=== PATIENT | female | born 1960 | race African-American/Black ===

== ENCOUNTER 2017-03-12 21:53 | Emergency (ER) | payer OTHER ==
[2017-03-12 22:03] VITALS: TEMP 98.7; BMI 27.3
[2017-03-12] MEDS ORDERED: ALBUTEROL SO4 2.5/IPRATROPIUM 0.5 INH SOL 3 ML VIAL.NEB. NEB ONE ×2 (22:35→22:42)
--- NOTE | 2017-03-12 22:36 | PDOC ---
History of Present Illness - General Chief Complaint: Shortness of Breath Stated Complaint: SOB Time Seen by Provider: 03/12/17 22:05 - History of Present Illness Initial Comments: 03/12/17 22:36 CHIEF COMPLAINT: sob HISTORY OF PRESENT ILLNESS: 56 yo F with no PMH presents to ED with cough and SOB. Patient reports that she has had a worsening cold over the past 3 weeks. She reports having a productive cough and chills. She saw her PCP Dr. Wyatt and was given an albuterol inhaler but it has not helped her today and she feels as if she can't breathe. No recent travel or sick contacts. PAST MEDICAL HISTORY: Denies past medical history FAMILY HISTORY: Denies SOCIAL HISTORY: Denies tobacco, alcohol, illicit drug use. SURGICAL HISTORY: Denies ALLERGIES: No known drug allergies REVIEW OF SYSTEMS General/Constitutional: Denies fever or chills. Denies weakness. HEENT: Denies change in vision. Denies ear pain or discharge. Denies sore throat. Cardiovascular: Denies chest pain. Respiratory: SOB, cough. Dnies hemoptysis. Gastrointestinal: Denies nausea, vomiting, diarrhea or constipation. Denies rectal bleeding. Genitourinary: Denies dysuria, frequency, or change in urination. Musculoskeletal: Denies joint or muscle swelling or pain. Denies neck or back pain. Skin and breasts: Denies rash or easy bruising. Neurologic: Denies headache, vertigo, loss of consciousness, or loss of sensation. PHYSICAL EXAM General Appearance: Well-appearing, appropriately dressed. No apparent distress. HEENT: EOMI, PERRLA, normal ENT inspection, normal voice, TMs normal, pharynx normal. No conjunctival pallor. No photophobia, scleral icterus. Neck: Supple. Trachea midline. No tenderness, rigidity, carotid bruit, stridor , lymphadenopathy, or thyromegaly. Respiratory/Chest: Scattered wheezing b/l. No chest tenderness, respiratory distress, accessory muscle use. No crackles, rales, rhonchi, stridor, dullness Cardiovascular: RRR. S1, S2. Musculoskeletal/Extremities: Normal inspection. FROM of all extremities, normal capillary refill. Pelvis Stable. No CVA tenderness. No tenderness to extremities, pedal edema, swelling, erythema or deformity. Integumentary: Appropriate color, dry, warm. No cyanosis, erythema, jaundice or rash Neurologic: superintendent transmission II-XII intact. Fully oriented, alert. Appropriate mood/affect. Motor strength 5/5. No appreciable EOM palsy, facial droop or sensory deficit. 03/13/17 00:56 03/13/17 00:58 Past History - Past Medical History Allergies/Adverse Reactions: Allergies Allergy/AdvReac Type Severity Reaction Status Date / Time No Known Allergies Allergy Verified 03/12/17 21:59 Home Medications: Ambulatory Orders Codeine/Promethazine HCl [Phenergan w/ Codeine Syrup] 5 ml PO TID #120 ml Albuterol Sulfate Inhaler - [Ventolin Hfa Inhaler -] 1 - 2 inh PO QID 03/12/17 Azithromycin [Zithromax 250mg Tablets -] 250 mg PO ASDIR #5 tab 03/13/17 Other medical history: seasonal bronchitis - Psycho/Social/Smoking Cessation Hx Suicidal Ideation: No Smoking History: Current every day smoker Number of Cigarettes Smoked Daily: 20 Information on smoking cessation initiated: No *Physical Exam - Vital Signs Last Vital Signs Temp Pulse Resp BP Pulse Ox 98.7 F 116 H 24 165/92 96 03/12/17 22:00 03/12/17 22:00 03/12/17 22:00 03/12/17 22:00 03/12/17 22:00 ED Treatment Course - LABORATORY CBC & Chemistry Diagram: 03/12/17 22:13 03/12/17 22:13 - RADIOLOGY Radiology Studies Ordered: Category Date Time Status CHEST PA & LAT [RAD] Stat Radiology 03/12/17 22:35 Ordered Medical Decision Making - Medical Decision Making 03/13/17 00:58 56 yo F with no PMH presents to ED with cough and SOB. -CBC, CMP, lactic acid -CXR CXR wet read negative for pneumonia. Clinical presentation consistent with asthma-like bronchitis. Azithromycin rx sent to pharm. ADvised patient to take medications as prescribed and f/u with PCP Edmundo this week. Advised patient of signs and symptoms for return to ER; patient verbalized understanding and agrees to plan. *DC/Admit/Observation/Transfer Diagnosis at time of Disposition: Bronchitis - Discharge Dispostion Admit: No - Prescriptions Prescriptions: Azithromycin [Zithromax 250mg Tablets -] 250 mg PO ASDIR #5 tab - Referrals Referrals: Thomas Wyatt MD [Staff Physician] - - Patient Instructions Printed Discharge Instructions: DI for Acute Bronchitis Additional Instructions: Please take medication as prescribed and follow up with Dr. Wyatt this week. If you experience any fever, chills, nausea, vomiting, diarrhea, chest pain, worsening shortness of breath, or any new or worsening symptoms, please return to the ER.
[2017-03-12 23:21] LABS: BASOPHIL 0.8 % (0-2.0); EOSINOPHIL 2.5 % (0-4.5); MCH 30.3 pg (25.7-33.7); MCHC 33.2 g/dl (32.0-36.0); MEAN CELL VOLUME 91.2 fl (80-96); MEAN PLT VOLUME 7.5 fl (7.5-11.1); NEUTROPHILS 65.1 % (42.8-82.8); PLATELET COUNT 299 K/MM3 (134-434); RDW 14.8 % (11.6-15.6)
[2017-03-13 00:38] LABS: ALBUMIN 3.9 g/dl (3.4-5.0); BILIRUBIN,TOTAL 0.4 mg/dL (0.2-1.0); CALCIUM 9.3 mg/dL (8.5-10.1); COCKROFT - GAULT 79.033
[2017-03-13 00:39] LABS: TOT PROT 7.3 g/dl (6.4-8.2)
[2017-03-13 01:06] VITALS: BP 138/74; PULSE 95
--- NOTE | 2017-03-14 10:41 | EKG ---
Test Reason : Blood Pressure : / mmHG Vent. Rate : 093 BPM Atrial Rate : 093 BPM P-R Int : 154 ms QRS Dur : 076 ms QT Int : 364 ms P-R-T Axes : 077 068 065 degrees QTc Int : 452 ms NORMAL SINUS RHYTHM NORMAL ECG NO PREVIOUS ECGS AVAILABLE Confirmed by TIGRE ROSA MD ([id number]) on 03/14/2017 10:41:07 AM Referred By: Confirmed By:TIGRE ROSA MD
== END 2017-03-13 01:06 | disposition home or self-care (01) ==
LOC: JER 21:53
PROC: 3E0F7GC Introduction of Other Therapeutic Substance into Respiratory Tract, Via Natural or Artificial Opening (ICD-10-PCS; principal; 2017-03-12)
DX: J40 Bronchitis, not specified as acute or chronic (principal); F17.210 Nicotine dependence, cigarettes, uncomplicated
CPT/HCPCS: 36415; 71020-TC; 80053; 83605; 85025; 87040; 93005; 93010; 99282-25

== ENCOUNTER 2022-07-11 12:31 | Emergency (ER) | payer OTHER ==
[2022-07-11 12:44] VITALS: PULSE 78; TEMP 98.8; BMI 23.7
[2022-07-11] MEDS ORDERED: SODIUM CHLORIDE 0.9% 500 ML INFUS.BAG IV ONE (13:10)
[2022-07-11 14:50] LABS: BASO % 0.9 % (0-2.0); EOS % 0.8 % (0-4.5); HEMATOCRIT 42.5 % (32.4-45.2); HEMOGLOBIN 14.4 GM/dL (10.7-15.3); LYMPH % 24.2 % (8-40); MCH 31.5 pg (25.7-33.7); MCHC 33.9 g/dl (32.0-36.0); MEAN CELL VOLUME 92.8 fl (80-96); MEAN PLT VOLUME 6.9 fl (7.5-11.1); MONO % 6.9 % (3.8-10.2); NEUT % 67.2 % (42.8-82.8); PLATELET COUNT 368 10^3/uL (134-434); RBC 4.58 M/mm3 (3.60-5.2); RDW 15.1 % (11.6-15.6); WHITE BLOOD COUNT 7.5 K/mm3 (4.0-10.0)
[2022-07-11 15:13] LABS: CALCIUM 9.8 mg/dL (8.5-10.1)
[2022-07-11 15:14] LABS: ALBUMIN 3.7 g/dl (3.4-5.0); BLOOD UREA NITROGEN 14.6 mg/dL (7-18)
[2022-07-11 15:17] LABS: CREATININE 0.8 mg/dL (0.55-1.3)
[2022-07-11 15:18] LABS: BILIRUBIN,TOTAL 0.5 mg/dL (0.2-1)
[2022-07-11 15:19] LABS: TOT PROT 7.4 g/dl (6.4-8.2)
[2022-07-11 16:02] LABS: EPI CELLS 13 /uL (0-25.1); HYALINE CASTS 0 /uL (0-3.1); PH,URINE 7.5 (5.0-8.0); URINE APPEARANCE CLEAR; URINE BACTERIA 342 /uL (0-1359); URINE BILIRUBIN NEGATIVE (NEGATIVE); URINE COLOR YELLOW; URINE GLUCOSE (UA) NEGATIVE (NEGATIVE); URINE KETONE NEGATIVE (NEGATIVE); URINE LEUK ESTERASE 1+ (NEGATIVE); URINE NITRITE NEGATIVE (NEGATIVE); URINE PROTEIN NEGATIVE (NEGATIVE); URINE RBC 94 /uL (0-23.9); URINE UROBILINOGEN 0.2 mg/dL (0.2-1.0); URINE WBC 16 /uL (0-25.8)
[2022-07-11 16:28] VITALS: BP 176/97; RESP 16
== END 2022-07-11 18:51 | disposition home or self-care (01) ==
LOC: JER 12:31
DX: R53.1 Weakness (principal); R10.13 Epigastric pain; R42 Dizziness and giddiness; R11.2 Nausea with vomiting, unspecified
CPT/HCPCS: 0241U-QW; 36415; 71046-TC-FY; 80053; 81003; 84132; 84484; 85025; 87086; 93005; 93010; 99284-25